=== PATIENT | female | born 1965 | race Caucasian/White ===

== ENCOUNTER → 2016-12-02 | Outpatient (CLI) | payer OTHER ==
[~2016-12-02] VITALS: Ht 167.6 cm; Wt 90.7 kg
[~2016-12-02] MED LIST: ALLEGRA ALLERG180 MG PO; BUPROPION XL300 MG PO; CELEBREX100 MG PO; CELEXA20 MG PO; DAILY MULTIPLE1 EACH PO; ESTRADIOL2 MG PO; NASONEX17 GM BOTH NARES; PANTOPRAZOLE SO40 MG PO; PROAIR HFA8.5 GM IH; PROBIOTIC1 EAC3 PO; SINGULAIR10 MG PO
== END | disposition home or self-care (01) ==
LOC: AMB 08:56
PROC: 0TF4XZZ Fragmentation in Left Kidney Pelvis, External Approach (ICD-10-PCS; principal; 2016-12-02)
DX: N20.0 Calculus of kidney (principal); Z87.442 Personal history of urinary calculi; J45.909 Unspecified asthma, uncomplicated; Z87.440 Personal history of urinary (tract) infections; Z87.890 Personal history of sex reassignment
CPT/HCPCS: 74010; J1100; J2250; J2405; J3010